=== PATIENT | female | born 1955 | race Caucasian/White ===

== ENCOUNTER → 2016-09-18 | Outpatient (CLI) | payer BC ==
[~2016-09-18] MED LIST: Docusate Sodium PO; ESTR1PAT33 TD; ESTR1TAB24 PO; Hydrocodone Bit/Acetaminophen PO; Ibuprofen PO; LANS15CA PO; LORA10TA2; MECL-133; MEDR5TAB PO; MELO-195 PO; PANT20TA2 PO; PRAV40TA PO; PRAV80TA2 PO; PRM25T; RANI150T66 PO; SCR1T1 PO; TERBIN250T PO
--- NOTE | 2016-09-19 08:51 | ECHOCARDIOGRAPHY REPORT ---
PROCEDURE PHYSICIAN: MIRTA MYERS DATE OF PROCEDURE: 09/18/2016 TWO DIMENSIONAL ECHOCARDIOGRAM REPORT PRIMARY PHYSICIAN: OTHER PHYSICIAN: REFERRING PHYSICIAN: Dr. Hernandez ORDERING PHYSICIAN: INDICATION FOR THE PROCEDURE: Hypertension. MEASUREMENTS DERIVED VALUES LV DIAMETER (LAX) NORMALS NORMALS Diastolic 4.6 (3.6-5.2) Eject. Fract. 60% (60%+/-6%) Systolic (2.3-3.9) Diastolic Vol. % Shortening (0.22-0.42) Systolic Vol. Aortic Root IVS THICKNESS Diastolic 1.1 (0.6-1.1) LVPW THICKNESS Diastolic 1.1 (0.6-1.1) LA DIAMETER Systolic 4.2 (2.1-3.7) FINDINGS: 1. Technical quality is good. 2. The left ventricle is normal in size with normal contractility. Systolic function appeared to be normal. Estimated ejection fraction 60%. Diastolic dysfunction is suggested by Doppler. 3. The left atrium is mildly dilated. No clot or thrombus were seen within the left atrium. 4. The right atrium and right ventricle are normal in size. No clot or thrombus were seen within the right side. 5. Mitral valve is normal in morphology with mild mitral regurgitation noted by color Doppler flow. No mitral valve prolapse. No mitral valve stenosis. 6. Aortic valve is trileaflet with normal opening and closing pattern. No significant aortic valve stenosis was noted. No aortic regurgitation. 7. Tricuspid valve is normal in morphology with mild tricuspid regurgitation noted by color Doppler flow. Doppler across tricuspid valve estimated pulmonary artery pressure of 31+ right atrial pressure. 8. Pulmonic valve is functioning normally. 9. No pericardial effusion. IN CONCLUSION: 1. Mild left ventricular hypertrophy with normal systolic function. Estimated ejection fraction 60%. Diastolic dysfunction is suggested by Doppler. 2. Mildly dilated left atrium. 3. Mild mitral and tricuspid regurgitation. 4. Aortic valve sclerosis. No aortic stenosis. 5. Estimated pulmonary artery pressure of 40 mmHg. Job ID: [id number] Dictated Date: 09/18/2016 15:05:19 Butter Wrapper Date: 09/19/2016 08:48:08 / elana
== END ==
LOC: CARD 13:17
PROVIDERS: ATTEND Physician Assistant
DX: I65.23 Occlusion and stenosis of bilateral carotid arteries (principal); I10 Essential (primary) hypertension; E78.2 Mixed hyperlipidemia; E66.8 Other obesity
CPT/HCPCS: 93306

== ENCOUNTER → 2016-09-26 | Outpatient (CLI) | payer BC ==
[~2016-09-26] VITALS: Ht 180.3 cm; Wt 97.5 kg
[~2016-09-26] MED LIST changes: +CATHETER FLUSH 10 ML SYR IV PRN; +REGADENOSON 0.4 MG/5 ML SYR (LEXISCAN) IV ONE
[2016-09-26 13:05] VITALS: BP 152/71
--- NOTE | 2016-09-27 08:56 | STRESS TEST ---
PROCEDURE PHYSICIAN: MIRTA MYERS DATE OF PROCEDURE: 09/26/2016 LEXISCAN MYOVIEW STRESS TEST REPORT: REFERRING PHYSICIAN: Dr. Hernandez INDICATION FOR THE PROCEDURE: 1. Hypertension. 2. Bradycardia. IN SUMMARY: The patient was injected with 10.44 mCi of technetium 99 Myoview and the resting images were obtained. Then the patient received 0.4 mg of Lexiscan followed by 30.6 mCi of technetium 99 Myoview. Throughout the test, there were no EKG changes. The resting and stress images were reviewed and compared in the short axis, horizontal long axis, and vertical long axis views. Review of the images showed breast attenuation with typical female pattern. There is no significant ischemia or infarction on SPECT images. SSS is 0. TID value 1. On the gated images, the left ventricle appeared to be normal size with normal contractility. Calculated ejection fraction 65%. IN CONCLUSION: 1. The patient tolerated Lexiscan well. 2. Breast attenuation affecting the quality of the images with no significant ischemia or infarction on SPECT images. 3. Normal left ventricular size with normal contractility. Calculated ejection fraction 65%. Job ID: [id number] Dictated Date: 09/26/2016 18:49:00 Development Scientist Date: 09/27/2016 08:53:16 / elana
== END ==
LOC: CARD 11:07
PROVIDERS: ATTEND Physician Assistant
DX: I65.23 Occlusion and stenosis of bilateral carotid arteries (principal); I10 Essential (primary) hypertension; E78.2 Mixed hyperlipidemia; E66.8 Other obesity; Z68.30 Body mass index [BMI] 30.0-30.9, adult
CPT/HCPCS: 78452; 93017

== ENCOUNTER → 2017-03-08 | Outpatient (CLI) | payer BC ==
[~2017-03-08] MED LIST changes: -CATHETER FLUSH 10 ML SYR IV PRN; -REGADENOSON 0.4 MG/5 ML SYR (LEXISCAN) IV ONE
--- NOTE | 2017-03-08 15:27 | Diagnostic Imaging Report ---
PROCEDURE: MRI lumbar spine. TECHNIQUE: Multiplanar, multisequence MRI of the lumbar spine was performed without contrast. INDICATION: Chronic back pain. No history of trauma. FINDINGS: There is levoscoliosis centered at L2. Body height is well maintained. There is diffuse degenerative disc disease. Degenerative facet changes are present as well. There is no central canal stenosis. L1-L2: No evidence of disc herniation. Mild hypertrophic endplate changes and mild posterior facet and ligamentous hypertrophy is present. Disc does bulge slightly into the right neuroforamen with mild encroachment. L2-L3: Disc shows normal contour with no disc herniation. There is moderate posterior facet and ligamentous hypertrophy causing moderate encroachment upon the lateral recess on the right. No focal disc herniation. L3-L4: There is a small disc herniation noted along the right lateral recess and right neuroforamen. There is associated facet and ligamentous hypertrophy causing moderate to severe encroachment upon the neuroforamen on the right. Left neuroforamen is widely patent. L4-L5: Disc shows normal contour. Posterior facet and ligamentous hypertrophy present, more severe on the left causing mild to moderate encroachment upon the neuroforamen. L5-S1: There is complete loss of disc space. There is no focal disc herniation. There is narrowing of the neuroforamen bilaterally due to settling of the disc space and posterior facet and ligamentous hypertrophy. The paraspinal soft tissues appear normal. The conus medullaris and cauda equina are normal. IMPRESSION: 1. Moderate scoliosis to the left with diffuse degenerative disc and facet disease as described above in detail. Hypertrophic changes are causing moderate to moderate to severe encroachment upon multiple levels of the neuroforamen without central canal stenosis. Dictated by: Dictated on workstation # [id number]
== END ==
LOC: RAD 13:29
PROVIDERS: ATTEND Orthopaedic Surgery
DX: M51.36 Other intervertebral disc degeneration, lumbar region (principal); M47.816 Spondylosis without myelopathy or radiculopathy, lumbar region; M41.26 Other idiopathic scoliosis, lumbar region
CPT/HCPCS: 72148

== ENCOUNTER → 2017-07-23 | Outpatient (CLI) | payer BC ==
--- NOTE | 2017-07-24 19:28 | Diagnostic Imaging Report ---
EXAMINATION: Bilateral screening mammogram 2D views with tomosynthesis The current study was also evaluated with a Computer Aided Detection (CAD) system. INDICATION: Screening. No current complaints stated on the questionnaire. COMPARISON: 07/18/16. FINDINGS: The breasts are composed of heterogeneously dense parenchyma which may decrease mammographic sensitivity. Occasional benign-appearing calcifications are seen. Allowing for technique and positional differences, no suspicious change is seen. IMPRESSION: Dense breasts with no definite change. ACR BI-RADS Category 2: Benign findings. Result letter will be mailed to the patient. Note: At least 10% of breast cancer is not imaged by mammography. Dictated on workstation # [id number]
== END ==
LOC: RAD 11:23
PROVIDERS: ATTEND Obstetrics & Gynecology
DX: Z12.31 Encounter for screening mammogram for malignant neoplasm of breast (principal)
CPT/HCPCS: 77067

== ENCOUNTER → 2018-02-05 | Outpatient (CLI) | payer BC | LOC: CARD 10:24 | PROVIDERS: ATTEND Internal Medicine Cardiovascular Disease | DX: I10 Essential (primary) hypertension (principal); G47.30 Sleep apnea, unspecified; E78.5 Hyperlipidemia, unspecified; E66.9 Obesity, unspecified | CPT/HCPCS: 93306 ==

== ENCOUNTER → 2018-08-13 | Outpatient (CLI) | payer BC ==
--- NOTE | 2018-08-14 09:33 | Diagnostic Imaging Report ---
INDICATION: Screening. COMPARISON: 07/23/2017 back through 06/23/2012. TECHNIQUE: 3D tomosynthesis was performed and reviewed. FINDINGS: The fibroglandular tissues are diffusely dense bilaterally. There are a few benign type calcifications. There is no dominant mass, spiculated lesion, or suspicious calcifications identified. The skin, nipples, and axillae are unremarkable. IMPRESSION: Benign. ACR BI-RADS Category 2: Benign findings. Result letter will be mailed to the patient. Note: At least 10% of breast cancer is not imaged by mammography. Dictated by: Dictated on workstation # [id number]
== END ==
LOC: RAD 14:40
PROVIDERS: ATTEND Obstetrics & Gynecology
DX: Z12.31 Encounter for screening mammogram for malignant neoplasm of breast (principal)
CPT/HCPCS: 77067

== ENCOUNTER → 2019-07-03 | Outpatient (CLI) | payer BC | LOC: CARD 13:38 | PROVIDERS: ATTEND Internal Medicine Cardiovascular Disease | DX: I65.23 Occlusion and stenosis of bilateral carotid arteries (principal); I10 Essential (primary) hypertension; E78.2 Mixed hyperlipidemia; I51.7 Cardiomegaly | CPT/HCPCS: 93306 ==

== ENCOUNTER → 2019-08-18 | Outpatient (CLI) | payer BC ==
--- NOTE | 2019-08-18 13:07 | Diagnostic Imaging Report ---
INDICATION: Routine screening. COMPARISON: 08/13/2018 and 07/23/2017. TECHNIQUE: 2D and 3D bilateral screening mammography was performed with CAD. FINDINGS: Scattered fibroglandular densities are identified bilaterally. The overall parenchymal pattern appears to be stable. No dominant mass or malignant appearing microcalcifications are seen. A nodular density in the upper slightly outer left breast appears stable. The axillae are unremarkable. IMPRESSION: No mammographic features suspicious for malignancy are identified. ACR BI-RADS Category 2: Benign findings. Result letter will be mailed to the patient. Note: At least 10% of breast cancer is not imaged by mammography. Dictated by: Dictated on workstation # [id number]
== END ==
LOC: RAD 09:45
PROVIDERS: ATTEND Obstetrics & Gynecology
DX: Z12.31 Encounter for screening mammogram for malignant neoplasm of breast (principal)
CPT/HCPCS: 77067

== ENCOUNTER → 2020-08-22 | Outpatient (CLI) | payer MEDICARE ==
--- NOTE | 2020-08-23 12:21 | Diagnostic Imaging Report ---
INDICATION: Routine screening. Comparison is made with prior mammogram from 08/18/2019 and 08/13/2018. 2-D and 3-D bilateral screening mammography was performed with CAD. Scattered fibroglandular densities are identified bilaterally. The parenchymal pattern is stable. No mass or malignant appearing microcalcifications are seen. Axillae are unremarkable. IMPRESSION: BI-RADS Category 1 No mammographic features suspicious for malignancy are identified. ACR BI-RADS Category 1: Negative. Result letter will be mailed to the patient. Note: At least 10% of breast cancer is not imaged by mammography. Dictated by: Dictated on workstation # [id number]
== END ==
LOC: RAD 14:43
PROVIDERS: ATTEND Obstetrics & Gynecology
DX: Z12.31 Encounter for screening mammogram for malignant neoplasm of breast (principal)
CPT/HCPCS: 77063; 77067

== ENCOUNTER → 2021-05-10 | Outpatient (CLI) | payer MEDICARE | LOC: LABNPT 06:40 | PROVIDERS: ATTEND Orthopaedic Surgery | DX: Z01.812 Encounter for preprocedural laboratory examination (principal); Z20.822 Contact with and (suspected) exposure to COVID-19 | CPT/HCPCS: 87635 ==

== ENCOUNTER 2021-07-26 05:39 | Outpatient (CLI) | payer MEDICARE ==
[~2021-07-26] VITALS: Ht 177.8 cm; Wt 108.6 kg
[2021-07-28] MEDS ORDERED: OMEG-160 PO (12:22)
[2021-07-28] MEDS ORDERED: ACET-93 PO (12:22)
[2021-07-28] MEDS ORDERED: CALC600T91 PO (12:22)
[2021-07-28] MEDS ORDERED: AMLO-250 PO (12:22)
[2021-07-28] MEDS ORDERED: FURO40TA4 PO (12:22)
[2021-07-28] MEDS ORDERED: FENO145T26 PO (12:22)
[2021-07-28] MEDS ORDERED: ASPI-1238 PO (12:22)
[2021-07-28] MEDS ORDERED: MULT-1136 PO (12:22)
[2021-07-28] MEDS ORDERED: CYCL10TA25 PO (12:22)
[2021-07-28] MEDS ORDERED: LOSA25TA41 PO (12:22)
[2021-07-28] MEDS ORDERED: HYDR25TA4 PO (12:22)
[2021-07-28] MEDS ORDERED: MTP25TSR PO (12:22)
[2021-07-28] MEDS ORDERED: ROSU5TAB13 PO (12:28)
== END 2021-07-31 11:57 | disposition home or self-care (01) ==
LOC: PREOP 05:39
PROVIDERS: ATTEND Surgery
DX: Z01.818 Encounter for other preprocedural examination (principal)

== ENCOUNTER 2021-08-02 09:21 | Day surgery (SDC) | payer MEDICARE ==
[~2021-08-02] VITALS: Ht 177.8 cm; Wt 108.6 kg
[~2021-08-02 09:21] MED LIST changes: +ACET-93 PO; +AMLO-250 PO; +ASPI-1238 PO; +CALC600T91 PO; +CYCL10TA25 PO; +FENO145T26 PO; +FURO40TA4 PO; +HYDR25TA4 PO; +LOSA25TA41 PO; +MTP25TSR PO; +MULT-1136 PO; +OMEG-160 PO; +ROSU5TAB13 PO
[2021-08-02] MEDS ORDERED: LACTATED RINGERS 1,000 ML IV STA (09:23)
[2021-08-02] MEDS ORDERED: LACTATED RINGERS 1,000 ML IV ONE (09:26)
[2021-08-02 09:30] VITALS: BP 128/75
--- NOTE | 2021-08-02 09:38 | Progress Note-Pre Operative ---
Pre-Operative Progress Note H&P Reviewed The H&P was reviewed, patient examined and no changes noted. Date Seen by Provider: Aug 02, 2021 Time Seen by Provider: 09:00 Date H&P Reviewed: Aug 02, 2021 Time H&P Reviewed: 09:00 Pre-Operative Diagnosis: change bowel habits HERNANDEZ REMY MD Aug 02, 2021 09:38
--- NOTE | 2021-08-02 09:39 | Discharge Inst-Surgical ---
D/C Lap Instructions-JONEL Follow Up Activity as tolerated High Fiber Diet 25g or more per day Avoid Alcohol, Caffeine, Spicy [place] and Acid foods. Drink 64 fluid oz or more of fluids per day. Symptoms to Report: Fever over 101 degree F, Nausea/Vomiting If any problems/questions: Contact your physician or go to Emergency Room HERNANDEZ REMY MD Aug 02, 2021 09:39
[2021-08-02] MEDS ORDERED: ONDANSETRON 4 MG/2 ML (SDV) Z0FRAN IVP PRN (09:45)
[2021-08-02] MEDS ORDERED: ONDANSETRON 4 MG (ZOFRAN) ORAL DISSOLVE TAB PO PRN (09:45)
[2021-08-02] MEDS ORDERED: PROPOFOL INJECTION 50 ML IV ONE (10:04)
[2021-08-02] MEDS ORDERED: LIDOCAINE JELLY 2% 6 ML SYRINGE ONE (10:08)
[2021-08-02 10:40] VITALS: BP 100/55
[2021-08-02 10:45] VITALS: BP 99/58
--- NOTE | 2021-08-02 10:49 | Progress Note-Post Operative ---
Post-Operative Progess Note Surgeon (s)/Boat Dock Operator (s) Surgeon HERNANDEZ REMY MD Boat Dock Operator: none Pre-Operative Diagnosis change bowel habits Post-Operative Diagnosis chronic ext and int hemorrhoids(stage 2-3), moderate sigmoid diverticulosis. Procedure & Operative Findings Date of Procedure 08/02/21 Procedure Performed/Findings colonoscopy Anesthesia Type mac Estimated Blood Loss Estimated blood loss (mL): minimal Specimens/Packing Specimens Removed none HERNANDEZ REMY MD Aug 02, 2021 10:49
[2021-08-02 11:15] VITALS: BP 110/74
--- NOTE | 2021-08-02 11:20 | Anesthesia-General Post-Op ---
MAC Patient Condition Mental Status/LOC: Same as Preop Cardiovascular: Satisfactory Nausea/Vomiting: Absent Respiratory: Satisfactory Pain: Controlled Complications: Absent Post Op Complications Complications None Follow Up Care/Instructions Patient Instructions None needed. Anesthesiology Discharge Order Discharge Order Patient is doing well, no complaints, stable vital signs, no apparent adverse anesthesia problems. No complications reported per nursing. FLAVIA PHILIP CRNA Aug 02, 2021 11:20
[2021-08-02 11:30] VITALS: BP 110/74
--- NOTE | 2021-08-02 16:33 | OPERATIVE REPORT ---
DATE OF SERVICE: 08/02/2021 ATTENDING PRIMARY CARE PHYSICIAN: Dr. Lissett Blanco. PREOPERATIVE DIAGNOSES: Change in bowel habits encompassing severe constipation. POSTOPERATIVE DIAGNOSES: Between stage II-III chronic external and internal hemorrhoids, moderate sigmoid diverticulosis. PROCEDURE: Colonoscopy. SURGEON: Hernandez Hebert MD. ANESTHESIA: Monitored anesthesia care. ESTIMATED BLOOD LOSS: Minimal. FINDINGS: Between stage II-III chronic external and internal hemorrhoids, moderate sigmoid diverticulosis. DISPOSITION: The patient tolerated the procedure well. INDICATIONS: The patient is a 66-year-old female known to us. We had done a screening colonoscopy in 2012 and found to have external and internal hemorrhoids as well as a moderate sigmoid diverticulosis. She also had gastroesophageal reflux disease, which worsened and underwent an EGD in 2014 and found to have a reflux esophagitis stage III as well as a clinical Long's; however, biopsies were negative for Long's esophagus. She reports for the past three to four months, she has had significant change in bowel habits and states that she is severely constipated and will only have well-formed stool approximately once a week. She does not report any red blood per rectum nor any dark tarry stools. She reports trying stool softeners as well as vtbc-mal-jadlqgi laxatives; however, not on a consistent basis and no relief. DESCRIPTION OF PROCEDURE: The patient was brought to the endoscopy suite, laid in the left lateral decubitus position. After adequate IV pain and sedative medications and monitored anesthesia care, a digital rectal examination was performed. Chronic between stage II and III external and internal hemorrhoids were identified, which were not actively edematous nor inflamed and no bleeding. Normal sphincter tone was felt and there were no palpable masses. The endoscope was then intubated and anus and rectum gently insufflated. The endoscope was then advanced through the valves of [place] to the rectum with no polyps or any neoplasms identified. Through the sigmoid colon, a moderate sigmoid diverticulosis identified. There were no mucosal inflammatory changes to indicate any active diverticulitis. The endoscope was then advanced through the remainder of the descending, transverse and ascending colon to the cecum, which were normal. There were no polyps or any neoplasms identified throughout the colon or rectum. The endoscope was then slowly withdrawn while taking a second look and suctioning of residual air with no additional findings. The patient tolerated the procedure well. We feel that the majority of her change in bowel habits encompassing lack of supplemental fiber on a regular basis as well as the host of medications that she takes. She needs to titrate the amount of fiber in her diet, which should equal or exceed 30 grams daily as well as significant amounts of water to the point where she does have a bowel movement daily, which should be very soft in consistency as well. She may take stool softeners as well as laxatives simultaneously, however, these work by different mechanism and the colon becomes less responsive to this joint terminal attack controller. Job ID: [id number] DocumentID: [id number] Dictated Date: 08/02/2021 10:41:54 Body Coverer Date: 08/02/2021 16:33:06 Dictated By: HERNANDEZ HEBERT MD
== END 2021-08-02 11:15 | disposition home or self-care (01) ==
LOC: ENDO 09:21
PROVIDERS: ATTEND Surgery
DX: K57.30 Diverticulosis of large intestine without perforation or abscess without bleeding (principal); K64.2 Third degree hemorrhoids; E78.00 Pure hypercholesterolemia, unspecified; I10 Essential (primary) hypertension; K21.9 Gastro-esophageal reflux disease without esophagitis; E78.5 Hyperlipidemia, unspecified; G47.33 Obstructive sleep apnea (adult) (pediatric); Z96.641 Presence of right artificial hip joint; Z79.890 Hormone replacement therapy; Z79.82 Long term (current) use of aspirin; Z87.891 Personal history of nicotine dependence; Z79.899 Other long term (current) drug therapy; Z88.5 Allergy status to narcotic agent; Z99.89 Dependence on other enabling machines and devices

== ENCOUNTER → 2021-08-23 | Outpatient (CLI) | payer MEDICARE ==
--- NOTE | 2021-08-23 15:39 | Diagnostic Imaging Report ---
INDICATION: Routine screening. COMPARISON: 08/22/2020 and 08/18/2019. TECHNIQUE: 2D and 3D bilateral screening mammography was performed with CAD. FINDINGS: Scattered fibroglandular densities are identified bilaterally. The parenchymal pattern is stable. No mass or malignant-appearing microcalcifications are seen. The axillae are unremarkable. IMPRESSION: No mammographic features suspicious for malignancy are identified. ACR BI-RADS Category 1: Negative. Result letter will be mailed to the patient. Note: At least 10% of breast cancer is not imaged by mammography. Dictated by: Dictated on workstation # [id number]
== END ==
LOC: RAD 11:15
PROVIDERS: ATTEND Obstetrics & Gynecology
DX: Z12.31 Encounter for screening mammogram for malignant neoplasm of breast (principal)
CPT/HCPCS: 77063; 77067

== ENCOUNTER → 2021-09-20 | Outpatient (CLI) | payer MEDICARE ==
[~2021-09-20] VITALS: Ht 177 cm; Wt 104.0 kg
[~2021-09-20] MED LIST changes: +CATHETER FLUSH 10 ML SYR IV PRN; +REGADENOSON 0.4 MG/5 ML SYR (LEXISCAN) IV ONE
[2021-09-20 13:11] VITALS: BP 147/64
--- NOTE | 2021-09-21 08:23 | Cardiology Stress Test Report ---
Stress Test Report Date of Procedure/Referring: Date of Procedure: Sep 21, 2021 Sonia Wise Admitting Physician Lissett Blanco DO Indications: HTN Baseline Heart Rate: 69 Baseline Blood Pressure: Blood Pressure Systolic: 147 Blood Pressure Diastolic: 64 Baseline Vitals Vital Signs Date Time Temp Pulse Resp B/P (MAP) Pulse Ox O2 Delivery O2 Flow Rate FiO2 09/20/21 13:11 69 147/64 (91) Baseline EKG: Baseline EKG: NSR Summary After explaining the procedure to the patient, she signed a consent and then brought to the stress nuclear laboratory. Patient received 0.4 mg Lexiscan for stress test, ECG, heart rate and blood pressure were monitored continuously. Resting and stress dose of radio tracer were injected, imaging was acquired and reviewed in short axis, horizontal long axis and vertical long axis views. TID: 1.07 SSS: 10 SDS: 6 EF: 64 1. Patient tolerated Lexiscan well 2. Extracardiac attenuation affecting the quality of the images, there is reversible ischemia involving the mid to apical inferolateral wall and anterolateral wall 3. Normal left ventricular size, ejection fraction 64% MIRTA MYERS MD Sep 21, 2021 08:23
== END ==
LOC: CARD 11:30
PROVIDERS: ATTEND Physician Assistant
DX: I11.9 Hypertensive heart disease without heart failure (principal)
CPT/HCPCS: 78452; 93017; 93306; A9502

== ENCOUNTER 2021-09-27 10:43 | Day surgery (SDC) | payer MEDICARE ==
[2021-09-27] VITALS (10 sets, daily range): BP systolic 101–146; BP diastolic 57–74
[~2021-09-27] VITALS: Ht 180 cm; Wt 109.0 kg
[~2021-09-27 10:43] MED LIST changes: -CATHETER FLUSH 10 ML SYR IV PRN; -REGADENOSON 0.4 MG/5 ML SYR (LEXISCAN) IV ONE
[2021-09-27] MEDS ORDERED: NS IV 1000 ML 1,000 ML ONE (10:59)
[2021-09-27] MEDS ORDERED: LIDOCAINE 1% INJ 20 ML VIAL ONE (10:59)
[2021-09-27] MEDS ORDERED: HEParin (CATH LAB) 2,000 ML IV ONE (10:59)
[2021-09-27] MEDS ORDERED: NS IV 1000 ML 1,000 ML IV SCH ×2 (11:00→13:15)
[2021-09-27 11:24] LABS: HEMATOCRIT 44 % (35-52); HEMOGLOBIN 14.5 g/dL (11.5-16.0); MEAN CORPUSCULAR HEMOGLOBIN 30 pg (25-34); MEAN CORPUSCULAR HGB CONC 33 g/dL (32-36); MEAN CORPUSCULAR VOLUME 91 fL (80-99); MEAN PLATELET VOLUME 9.4 fL (9.0-12.2); PLATELET COUNT 316 10^3/uL (130-400); WHITE BLOOD COUNT 9.1 10^3/uL (4.3-11.0)
[2021-09-27] MEDS ORDERED: CHOL200012 PO (11:30)
[2021-09-27] MEDS ORDERED: MELA5CAP PO (11:33)
[2021-09-27 11:34] LABS: BILIRUBIN,URINE NEGATIVE (NEGATIVE); CLARITY,URINE CLEAR; COLOR,URINE YELLOW; GLUCOSE, URINE (UA) NEGATIVE (NEGATIVE); KETONES,URINE NEGATIVE (NEGATIVE); LEUKOCYTE ESTERASE ,URINE NEGATIVE (NEGATIVE); NITRITE,URINE NEGATIVE (NEGATIVE); PH,URINE 6.5 (5-9); PROTEIN,URINE NEGATIVE (NEGATIVE)
--- NOTE | 2021-09-27 11:37 | Diagnostic Imaging Report ---
INDICATION: Pre-heart catheterization. TIME OF EXAM: 11:14 a.m. COMPARISON: Correlation is made with prior exam from 10/21/2015. FINDINGS: Left hemidiaphragm is elevated. There appears to be resultant subsegmental atelectasis in the left base. Right lung is clear. No effusion or pneumothorax is seen. Heart size is stable. IMPRESSION: Left hemidiaphragmatic elevation with left basilar subsegmental atelectasis. Dictated by: Dictated on workstation # [id number]
[2021-09-27 11:39] LABS: INR 0.9 (0.8-1.4); PROTHROMBIN TIME PATIENT 12.9 SEC (12.2-14.7)
[2021-09-27 11:47] LABS: ALANINE AMINOTRANSFERASE 16 U/L (0-55); ALBUMIN 4.6 GM/DL (3.2-4.5); ALKALINE PHOSPHATASE 53 U/L (40-136); BILIRUBIN,TOTAL 0.6 MG/DL (0.1-1.0); BUN/CREATININE RATIO 23; CALCIUM 10.6 MG/DL (8.5-10.1); CARBON DIOXIDE 30 MMOL/L (21-32); CHLORIDE 98 MMOL/L (98-107); CHOLESTEROL 210 MG/DL (< 200); GFR ESTIMATED 35; GLUCOSE 106 MG/DL (70-105); HDL CHOLESTEROL 71 MG/DL (40-60); POTASSIUM 3.3 MMOL/L (3.6-5.0); SODIUM 139 MMOL/L (135-145); TOTAL PROTEIN 8.1 GM/DL (6.4-8.2); TRIGLYCERIDES 125 MG/DL (<150); VLDL CHOLESTEROL 25 MG/DL (5-40)
[2021-09-27 11:48] LABS: BACTERIA,URINE TRACE /HPF
--- NOTE | 2021-09-27 12:26 | Conscious Sedation/ASA ---
Conscious Sedation Pre-Proced Time 12:25 ASA Score 3 For ASA 3 and 4: Consider anesthesia and medical clearance. Also, for patients with a history of failed moderate sedation consider anesthesia. Airway Lungs Heart ASA score ASA 1: a normal healthy patient ASA 2: a patient with a mild systemic disease (mid diabetes, controlled hypertension, obesity x ASA 3: a patient with a severe systemic disease that limits activity (angina, COPD, prior Myocardial infarction) ASA 4: a patient with an incapacitating disease that is a constant threat to life (CHF, renal failure) ASA 5: a moribund patient not expected to survive 24 hrs. (ruptured aneurysm) ASA 6: a declared brain- patient whose organs are being harvested. For emergent operations, add the letter E after the classification Mallampati Classification Grade 3 Sedation Plan Analgesia, Amnesia, Plan communicated to team members, Discussed options with patient/fam, Discussed risks with patient/fam The patient is an appropriate candidate to undergo the planned procedure, sedation, and anesthesia. The patient immediately re-assessed prior to indication. MIRTA MYERS MD Sep 27, 2021 12:26
[2021-09-27] MEDS ORDERED: fentaNYL INJ 100 MCG/2 ML AMP ONE (12:27)
[2021-09-27] MEDS ORDERED: MIDAZOLAM 5 MG/5 ML (VERSED) VIAL ONE (12:27)
[2021-09-27] MEDS ORDERED: VERAPAMIL 5 MG/2 ML (CALAN) VIAL IV ONE ×2 (12:29→12:32)
[2021-09-27] MEDS ORDERED: NITRO DRIP 25000 MCG/D5W 250 ML IV ONE (12:29)
[2021-09-27] MEDS ORDERED: HEParin 1000 UNIT/ML (10ML VIAL) FOR BOLUS ONE (12:29)
--- NOTE | 2021-09-27 13:09 | Discharge Inst-Post CATH ---
Discharge Inst-CATH/EP Problems Reviewed?: Yes Post Cardiac Cath/EP D/C Inst Follow Up/Plan Appointment with Dr. Paulino's office in 4 weeks <b>CARDIAC CATH/EP PROCEDURE DISCHARGE INSTRUCTIONS</b> ACTIVITY * Go Home directly and rest. * Limit activity of the leg (or wrist if it was used) for 7 days including aerobics, swimming, jogging, bicycling, etc. * Restrict stair-climbing for 7 days if possible, if not, climb up with your non-cath leg, then bring together on the same step. * Avoid lifting, pushing, pulling or excessive movement of the affected extremity for 7 days. * Customary sexual activity may be resumed after 2 days-use caution not to use a position that strains or causes pain to the affected extremity. * No driving for 24 hours. * NO SMOKING. * Avoid straining for bowel movements for 7 days. * Gentle walking on level ground is allowed. * Returning to work will depend on the type of procedure and the results. Your doctor will discuss this with you. CALL YOUR DOCTOR FOR ANY OF THE FOLLOWING: *If bleeding from the puncture site occurs- Apply gentle pressure to site with clean cloth and call your doctor or EMS. * If a knot or lump forms under the skin, increases in size, or causes pain. * If bruising appears to be worsening or moving further down your leg instead of disappearing. * Temperature above 101 F. CARE OF YOUR GROIN INCISION; * Bruising or purple discoloration of the skin near the puncture site is common. * You may shower only, no bathtub bathing for 5 days. Be careful to avoid slipping as your leg may feel stiff. * If a closure device was used on your femoral artery, please see the attached guide regarding care of the device and your leg. * Leave dressing on FOR 24 hours. CARE OF YOUR WRIST INCISION; * Bruising or purple discoloration of the skin near the puncture site is common. * You may shower. * DO NOT submerge wrist. * Leave dressing on FOR 24 hours. MIRTA PAULINO MD Sep 27, 2021 13:09
--- NOTE | 2021-09-27 13:13 | Cardiac Cath Report ---
Cardiac Cath Report Physician (s)/Battery Assembler Plastic (s) Physician MIRTA MYERS MD Pre-Procedure Diagnosis Pre-Procedure Diagnosis: Coronary artery disease Post-Procedure Note Procedure Start Date: Sep 27, 2021 Name of Procedure: Left heart catheterization Findings/Procedure Note PROCEDURE NOTE: 66-year-old lady with history of hypertension, hyperlipidemia, had chest pain, abnormal stress test, scheduled for cardiac catheterization possible PTCA. After explaining the procedure to the patient, all pros and cons were explained, all questions were answered. The patient signed the consent and then she was placed on the cardiac catheterization laboratory. Groin was prepped SL fashion local anesthesia was used. Sheath placed in the right radial artery, Vale catheter was advanced to the left ventricular cavity, pressure was measured, en gaged the left coronary system and angiogram was done. After multiple attempt to engage the right coronary system the catheter continue to selectively engage the conus branch. I remove the catheter and advanced 5 [place] Gabriela right catheter and engaged the right coronary artery and did angiogram. At the end of the procedure the sheath was removed. 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 Mildly elevated left ventricular end-diastolic pressure DISCUSSION AND RECOMMENDATION: Medical therapy is recommended no intervention is needed Anesthesia Type: Conscious Sedation Estimated blood loss (mL): 10 ml Contrast Amount: 35 ml Total Radiation Dose: 549 mGy Post-Procedure Diagnosis Post-operative diagnosis: Chest pain Coronary artery disease Hypertension Hyperlipidemia MIRTA MYERS MD Sep 27, 2021 13:13
== END 2021-09-27 15:45 | disposition home or self-care (01) ==
LOC: CATH 10:43 → SDC 13:21 → CATH 15:45
PROVIDERS: ATTEND Internal Medicine Cardiovascular Disease
DX: I25.10 Atherosclerotic heart disease of native coronary artery without angina pectoris (principal); I10 Essential (primary) hypertension; E78.5 Hyperlipidemia, unspecified; E78.2 Mixed hyperlipidemia; I35.8 Other nonrheumatic aortic valve disorders; R60.9 Edema, unspecified; I65.23 Occlusion and stenosis of bilateral carotid arteries; E66.9 Obesity, unspecified; G47.33 Obstructive sleep apnea (adult) (pediatric); Z87.891 Personal history of nicotine dependence; Z99.89 Dependence on other enabling machines and devices; Z79.899 Other long term (current) drug therapy; Z79.890 Hormone replacement therapy; Z79.82 Long term (current) use of aspirin; Z68.33 Body mass index [BMI] 33.0-33.9, adult
CPT/HCPCS: 71045; 80053; 80061; 81000; 85027; 85610; 85730; 87081; 93458; C1894; 36415

== ENCOUNTER → 2022-08-28 | Outpatient (CLI) | payer MEDICARE ==
[~2022-08-28] MED LIST changes: +CHOL200012 PO; +MELA5CAP PO
--- NOTE | 2022-08-28 16:00 | Diagnostic Imaging Report ---
INDICATION: Routine screening. Comparison is made with prior mammogram from 08/21/2021 and 08/22/2020. 2-D and 3-D bilateral screening mammography was performed with CAD. Both breasts are heterogeneously dense, limiting the sensitivity of mammography. The parenchymal pattern appears stable. No dominant mass or malignant-appearing microcalcifications are seen. Axillae are unremarkable. IMPRESSION: No mammographic features suspicious for malignancy are identified. ACR BI-RADS Category 1: Negative. Result letter will be mailed to the patient. Note: At least 10% of breast cancer is not imaged by mammography. BI-RADS Category 1 Dictated by: Dictated on workstation # [id number]
== END ==
LOC: RAD 11:09
PROVIDERS: ATTEND Internal Medicine
DX: Z12.31 Encounter for screening mammogram for malignant neoplasm of breast (principal)
CPT/HCPCS: 77063; 77067